=== PATIENT | female | born 1985 | race Caucasian/White ===

== ENCOUNTER 2024-07-27 10:18 | Outpatient (CLI) | payer OTHER, SELFPAY ==
--- NOTE | 2024-07-27 10:22 | XR_ITS ---
FINAL REPORT TECHNIQUE: Chest PA & Lateral CLINICAL HISTORY: cough x 1 month COMPARISON: None FINDINGS: 2 views of the chest were performed. The heart size is normal. The mediastinum is within normal limits. There is no acute cardiopulmonary process. There are no pleural effusions. There is no pneumothorax. The bony thorax appears intact. IMPRESSION: No acute cardiopulmonary process. Reviewed, Interpreted and Dictated by Issac Kincaid MD Transcribed by Vaishali Cortes Authenticated and [facility]
== END 2024-07-27 23:59 | disposition home or self-care (01) ==
LOC: RAD 10:20
PROVIDERS: PCP Family Medicine; Visit Provider Student in an Organized Health Care Education/Training Program
DX: R05.9 Cough, unspecified (principal)
CPT/HCPCS: 71046